=== PATIENT | female | born 1960 | race Hispanic/Latino ===

== ENCOUNTER 2018-08-11 00:34 | Inpatient (IN) | payer BC ==
--- NOTE | 2018-08-11 01:16 | ED PDOC ---
Arrival/HPI - General Chief Complaint: Lower Extremity Problem/Injury Time Seen by Provider: 08/11/18 00:37 Historian: Patient - History of Present Illness Narrative History of Present Illness (Text): 08/11/18 01:16 Aysha Sanchez is a 58 year old female, whose past medical history includes chrondrosarcoma, hypertension, and DVT s/p IVC filter, who presents to the emergency department complaining of left leg pain/swelling. Patient states she recently underwent surgery for right femur repair status post fracture approximately 5 weeks ago. Patient states her right leg has been healing well but notes she developed cramping pain to the left calf/posterior thigh yesterday. Patient was on Lovenox in the past for the surgery which she stopped 1.5 weeks ago. Patient was advised by her PMD to come in for further evaluation. Patient denies any weakness/numbness/tingling in the extremity, decreased range of motion, recent trauma/injury, shortness of breath, chest pain, or any other complaints. Symptom Onset: Gradual Symptom Course: Unchanged Activities at Onset: Light Context: Home Past Medical History - Provider Review Nursing Documentation Reviewed: Yes - Infectious Disease Hx of Infectious Diseases: None - Cardiac Hx Hypertension: Yes - Hematological/Oncological Hx Blood Transfusions: No Hx Blood Transfusion Reaction: No - Musculoskeletal/Rheumatological Hx Falls: No - Psychiatric Hx Depression: No Hx Emotional Abuse: No Hx Physical Abuse: No Hx Substance Use: No - Surgical History Other/Comment: R femur fx sx - Anesthesia Hx Anesthesia: Yes Hx Anesthesia Reactions: No Hx Malignant Hyperthermia: No - Suicidal Assessment Feels Threatened In Home Enviroment: No Family/Social History - Physician Review Nursing Documentation Reviewed: Yes Family/Social History: Unknown Family HX Smoking Status: Never Smoked Hx Alcohol Use: No Hx Substance Use: No Hx Substance Use Treatment: No Allergies/Home Meds Allergies/Adverse Reactions: Allergies No Known Allergies Allergy (Verified 03/02/12 19:22) Home Medications: Home Meds Medication Instructions Recorded Confirmed No Known Home Med 03/02/12 03/02/12 Review of Systems - Physician Review All systems were reviewed & negative as marked: Yes - Review of Systems Constitutional: Normal. absent: Fevers Eyes: Normal ENT: Normal Respiratory: Normal. absent: SOB, Cough Cardiovascular: Normal. absent: Chest Pain Gastrointestinal: Normal. absent: Abdominal Pain, Diarrhea, Nausea, Vomiting Genitourinary Female: Normal. absent: Dysuria, Frequency, Hematuria, Urine Output Changes Musculoskeletal: Other (+left cramp/posterior thigh cramping). absent: Back Pain, Neck Pain Skin: Normal. absent: Rash Neurological: Normal. absent: Headache, Dizziness Endocrine: Normal Hemo/Lymphatic: Normal Psychiatric: Normal Physical Exam Vital Signs Reviewed: Yes Vital Signs Temp Pulse Resp BP Pulse Ox 08/11/18 00:52 98.4 F 97 H 18 122/60 98 Temperature: Afebrile Blood Pressure: Normal Pulse: Regular Respiratory Rate: Normal Appearance: Positive for: Well-Appearing, Non-Toxic, Comfortable Pain Distress: None Mental Status: Positive for: Alert and Oriented X 3 - Systems Exam Head: Present: Atraumatic, Normocephalic Pupils: Present: PERRL Extroacular Muscles: Present: EOMI Conjunctiva: Present: Normal Mouth: Present: Moist Mucous Membranes Neck: Present: Normal Range of Motion Respiratory/Chest: Present: Clear to Auscultation, Good Air Exchange. No: Respiratory Distress, Accessory Muscle Use Cardiovascular: Present: Regular Rate and Rhythm, Normal S1, S2. No: Murmurs Abdomen: No: Tenderness, Distention, Peritoneal Signs Back: Present: Normal Inspection. No: CVA Tenderness, Midline Tenderness, Paraspinal Tenderness Upper Extremity: Present: Normal Inspection. No: Cyanosis, Edema Lower Extremity: Present: CALF TENDERNESS (Left calf tenderness). No: Edema Neurological: Present: GCS=15, CN II-XII Intact, Speech Normal Skin: Present: Warm, Dry, Normal Color. No: Rashes Psychiatric: Present: Alert, Oriented x 3, Normal Insight, Normal Concentration Medical Decision Making ED Course and Treatment: 08/11/18 01:16 Impression: 58 year old female presents with left calf/posterior thigh cramping. Differential Diagnosis included but are not limited to: DVT vs. muscular strain Plan: -- US Duplex Lower Extremities -- Reassess and disposition Progress Notes: 08/11/18 02:17 Preliminary US Duplex Lower Extremities positive for LLE DVT. EKG, CXR, labs o rdered. 08/11/18 02:49 Reviewed EKG, NSR at [address]-segment elevations or depressions, no T-wave inversions, normal intervals. 08/11/18 03:[address] Johnson, covering for Dr. Robins, who is aware and agrees with Lovenox. Pt [facility] be [facility] to [facility] for DVT Dr. Robins's service. Requests Dr. Mayes on heme/oncology consult. 08/11/18 03:09 CXR reviewed, shows no acute processes. - Lab Interpretations I have reviewed the lab results: Yes - RAD Interpretation Radiology Orders: 08/11/18 01:14 DUPLEX LOWER EXTRM VEIN LEFT [US] Stat Dioramist: ED Physician - EKG Interpretation Interpreted by ED Physician: Yes Type: 12 lead EKG - Scribe Statement The provider has reviewed the documentation as recorded by the Scribe Nati Nunez All medical record entries made by the Scribe were at my direction and personally dictated by me. I have reviewed the chart and agree that the record accurately reflects my personal performance of the history, physical exam, medical decision making, and the department course for this patient. I have also personally directed, reviewed, and agree with the discharge instructions and disposition. Disposition/Present on Arrival - Present on Arrival Any Indicators Present on Arrival: No History of DVT/PE: Yes History of Uncontrolled Diabetes: No Urinary Catheter: No History of Decub. Ulcer: No History Surgical Site Infection Following: None - Disposition Have Diagnosis and Disposition been Completed?: Yes Diagnosis: DVT of lower limb, acute Disposition: HOSPITALIZED Disposition Time: 03:12 Patient Plan: Admission Condition: STABLE Forms: [employer] (Belizean)
[2018-08-11 02:46] LABS: HEMOGLOBIN 10.2 g/dL (12.0-16.0); MEAN CELL VOLUME 90.1 fl (80.0-105.0); MEAN CORPUSCULAR HEMOGLOBIN 28.7 pg (25.0-35.0); MEAN CORPUSCULAR HGB CONC 31.9 g/dl (31.0-37.0); MEAN PLATELET VOLUME 9.6 fl (7.0-11.0); RBC 3.55 10^6/uL (3.5-6.1); RED CELL DISTRIBUTION WIDTH 13.7 % (11.5-14.5); WHITE BLOOD COUNT 16.1 10^3/uL (4.5-11.0)
[2018-08-11 02:50] LABS: ALBUMIN 3.9 g/dL (3.0-4.8); ALT/SGPT 46 U/L (7-56); AST/SGOT 53 U/L (14-36); BLOOD UREA NITROGEN 40 mg/dL (7-21); CALCIUM 9.7 mg/dL (8.4-10.5); GFR NON-AFRICAN AMERICAN 51; INR 1.35; PARTIAL THROMBOPLASTIN TIME 25.2 Seconds (25.1-36.5); PROTHROMBIN TIME 15.5 SECONDS (9.4-12.5)
[2018-08-11] MEDS ORDERED: Enoxaparin 100 mg Syringe SC STA (03:04)
[2018-08-11 04:52] VITALS: BMI 43.9
--- NOTE | 2018-08-11 08:45 | CARD ---
APPROVED REPORT Date of service: 08/11/2018 EKG Measurement Heart [id number] <Conclusion> Normal sinus rhythm Normal ECG
--- NOTE | 2018-08-11 09:02 | RAD ---
HISTORY: medical clearance COMPARISON: None available. TECHNIQUE: Chest, one view. FINDINGS: Examination limited by habitus and hypoinflation. LUNGS: No focal consolidation. Please note that chest x-ray has limited sensitivity for the detection of pulmonary masses. PLEURA: No significant pleural effusion identified. No definite pneumothorax . CARDIOVASCULAR: Heart size appears top normal. No significant atherosclerotic calcification present. OSSEOUS STRUCTURES: Degenerative changes of the spine. VISUALIZED UPPER ABDOMEN: Unremarkable. OTHER FINDINGS: None. IMPRESSION: No focal consolidation.
[2018-08-11] MEDS: Pantoprazole 40 mg EC Tab PO SCH (13:03)
[2018-08-11] MEDS: Enoxaparin 100 mg Syringe SC SCH ×2 (13:03→22:30)
--- NOTE | 2018-08-11 20:52 | HP ---
DATE OF EXAM: 08/11/2018 HISTORY OF PRESENT ILLNESS: The patient is 58 years old, a patient of Dr. 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 Almost five weeks ago, at work, she tripped and she fell, she broke her right hip. She was operated at [facility] five weeks ago. She was in the hospital for one week, but she was discharged. She was on anticoagulant while she was in the hospital, but she was discharged four weeks ago. She has been home and at home, she was not on anticoagulation. She was getting physical therapy and she was relatively ambulatory. The patient states for the last one week, she is having pain in the left calf going towards the medial side of the thigh. Pain got worse. So, she called the doctor who advised her to go to the emergency room for further evaluation. She denies any chest pain. No shortness of breath. No nausea or vomiting. No diarrhea. PAST MEDICAL HISTORY: Significant for; 1. Hypertension. 2. Hyperlipidemia. 3. 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 She does have a history of DVT in the past. 4. She has a history of inferior vena cava filter placement. ALLERGIES: SHE IS NOT ALLERGIC TO ANY MEDICATIONS. MEDICATIONS: At home, she is on lisinopril 20 mg daily. She is on Protonix 40 mg daily. SOCIAL HISTORY: She is , lives with her , has grown-up children. Denies smoking or drinking. PHYSICAL EXAMINATION GENERAL: She is awake, alert, oriented. Communicative. VITAL SIGNS: She is afebrile, pulse 80, respirations 20, blood pressure 120/58. LUNGS: Bilateral fair airflow. No rhonchi or crackle. HEART: S1, S2 audible. ABDOMEN: Soft, nontender. No rebound, no guarding. NEUROLOGIC: The patient is awake, alert, oriented. Communicative. Left leg calf tenderness and subtle difference in girth. LABORATORY DATA: WBC 16.1, hemoglobin 10.2, hematocrit 32.0, platelets . PT 15.5, INR 1.35. Chemistry; sodium 136, potassium 4.6, chloride 100, CO2 of 24, BUN 40, creatinine 1.1, blood sugar 129. Alkaline phosphatase 163. ASSESSMENT: 1. Left leg deep venous thrombosis. 2. History of right femur open reduction and internal fixation five weeks ago. 3. History of fibrosarcoma. 4. Hypertension. 5. Gastroesophageal reflux disease. PLAN: We will give her Lovenox 100 mg twice a day and start her on Xarelto, and after she is started on Xarelto, possible discharge in a.m. Rizwana Johnson MD (Delete this signature block when dictator is a preceptor.) cc: MD Cristy (Delete if not dictated.)
[2018-08-12] MEDS: Pantoprazole 40 mg EC Tab PO SCH (05:11)
[2018-08-12 07:09] LABS: ALBUMIN 3.3 g/dL (3.0-4.8); CALCIUM 9.3 mg/dL (8.4-10.5)
[2018-08-12 07:14] LABS: BASO # 0.01 K/mm3 (0.0-2.0); BASO % 0.1 % (0.0-3.0); EOS # 0.1 (0.0-0.7); EOS % 0.6 % (1.5-5.0); GRAN # 10.63 (1.4-6.5); GRAN % 78.6 % (50.0-68.0); HEMOGLOBIN 8.9 g/dL (12.0-16.0); LYMPH # 1.5 (1.2-3.4); LYMPH % 11.3 % (22.0-35.0); MEAN CELL VOLUME 90.2 fl (80.0-105.0); MEAN CORPUSCULAR HEMOGLOBIN 28.1 pg (25.0-35.0); MEAN CORPUSCULAR HGB CONC 31.1 g/dl (31.0-37.0); MEAN PLATELET VOLUME 9.7 fl (7.0-11.0); MONO # 1.3 (0.1-0.6); MONO % 9.4 % (1.0-6.0); RBC 3.17 10^6/uL (3.5-6.1); WHITE BLOOD COUNT 13.5 10^3/uL (4.5-11.0)
--- NOTE | 2018-08-12 13:35 | CP.PCM.DIS ---
Provider - Provider Date of Admission: 08/11/18 03:09 Attending physician: Tomas Robins MD [place] [facility] Course - Lab Results Lab Results: Most Recent Lab Values WBC 13.5 10^3/uL (4.5-11.0) H 08/12/18 05:30 RBC 3.17 10^6/uL (3.5-6.1) L 08/12/18 05:30 Hgb 8.9 g/dL (12.0-16.0) L 08/12/18 05:30 Hct 28.6 % (36.0-48.0) L 08/12/18 05:30 MCV 90.2 fl (80.0-105.0) 08/12/18 05:30 MCH 28.1 pg (25.0-35.0) 08/12/18 05:30 MCHC 31.1 g/dl (31.0-37.0) 08/12/18 05:30 RDW 14.0 % (11.5-14.5) 08/12/18 05:30 Plt Count 347 10^3/uL (120.0-450.0) 08/12/18 05:30 MPV 9.7 fl (7.0-11.0) 08/12/18 05:30 Gran % 78.6 % (50.0-68.0) H 08/12/18 05:30 Lymph % (Auto) 11.3 % (22.0-35.0) L 08/12/18 05:30 Levy % (Auto) 9.4 % (1.0-6.0) H 08/12/18 05:30 Eos % (Auto) 0.6 % (1.5-5.0) L 08/12/18 05:30 Baso % (Auto) 0.1 % (0.0-3.0) 08/12/18 05:30 Gran # 10.63 (1.4-6.5) H 08/12/18 05:30 Lymph # (Auto) 1.5 (1.2-3.4) 08/12/18 05:30 Levy # (Auto) 1.3 (0.1-0.6) H 08/12/18 05:30 Eos # (Auto) 0.1 (0.0-0.7) 08/12/18 05:30 Baso # (Auto) 0.01 K/mm3 (0.0-2.0) 08/12/18 05:30 PT 15.5 SECONDS (9.4-12.5) H 08/11/18 02:31 INR 1.35 08/11/18 02:31 APTT 25.2 Seconds (25.1-36.5) 08/11/18 02:31 Sodium 134 mmol/L (132-148) 08/12/18 05:30 Potassium 4.4 mmol/L (3.6-5.0) 08/12/18 05:30 Chloride 102 mmol/L (98-107) 08/12/18 05:30 Carbon Dioxide 26 mmol/L (21-33) 08/12/18 05:30 Anion Gap 11 (10-20) 08/12/18 05:30 BUN 35 mg/dL (7-21) H 08/12/18 05:30 Creatinine 1.2 mg/dl (0.7-1.2) 08/12/18 05:30 Est GFR ( Amer) 55 08/12/18 05:30 Est GFR (Non-Af Amer) 46 08/12/18 05:30 Random Glucose 98 mg/dL (70-110) 08/12/18 05:30 Calcium 9.3 mg/dL (8.4-10.5) 08/12/18 05:30 Total Bilirubin 0.7 mg/dL (0.2-1.3) 08/12/18 05:30 AST 46 U/L (14-36) H 08/12/18 05:30 ALT 41 U/L (7-56) 08/12/18 05:30 Alkaline Phosphatase 150 U/L (38-126) H 08/12/18 05:30 Total Protein 6.7 g/dL (5.8-8.3) 08/12/18 05:30 Albumin 3.3 g/dL (3.0-4.8) 08/12/18 05:30 Globulin 3.3 gm/dL 08/12/18 05:30 Albumin/Globulin Ratio 1.0 (1.1-1.8) L 08/12/18 05:30 Discharge Plan - Discharge Medications Prescriptions: Apixaban [Eliquis] 10 mg PO BID #14 tab Apixaban [Eliquis] 5 mg PO BID #60 tab - Follow Up Plan Condition: STABLE Disposition: HOME/ ROUTINE Instructions: Deep Vein Thrombosis (Blood Clots in the Legs) (DC) Additional Instructions: You were seen for a clot of in the veins of your left leg. You have been started on a new Blood-thinner medication, Eliquis. Please fill the prescription and take as prescribed. Take the 10mg twice-a-day blood thinner first. Start the 5mg twice-a-day blood thinner ONLY after finishing the 10mg dose. Do not take both at the same time. Please follow up with your PMD (Dr. Kearney) within 1 week of discharge. Please follow up with the Housekeeper Head (Dr. Mayes) within 3 weeks of discharge. Please resume all other home medications as previously prescribed. Please present to the nearest emergency department if you experience worsening or newly concerning symptoms. Referrals: Caio Kearney MD [Family Provider] - Shanelle Mayes MD [Staff Provider] -
--- NOTE | 2018-08-12 17:26 | CP.PCM.PN ---
<Elver Membreno - Last Filed: 08/12/18 17:20> Subjective - Date & Time of Evaluation Date of Evaluation: 08/12/18 Time of Evaluation: 07:30 - Subjective Subjective: Progress Note for Dr. Robins Service Patient seen and examined at bedside. No acute events overnight. This AM, patient's only complaint is some soreness in the left medial and posterior thigh, but both are improved compared to level of swelling/discomfort on ad mission, as per patient. Denies chest pain, shortness of breath, nausea, emesis. Objective - Vital Signs/Intake and Output Vital Signs (last 24 hours): Temp Pulse Resp BP Pulse Ox 98.1 F 73 18 107/59 L 98 08/12/18 16:34 08/12/18 16:34 08/12/18 16:34 08/12/18 16:34 08/12/18 16:34 Intake and Output: 08/12/18 08/12/18 06:59 18:59 Intake Total 1180 Output Total 450 Balance 730 - Medications Medications: Current Medications Apixaban (Eliquis) 10 mg PO BID [facility]; Protocol Last Admin: 08/12/18 17:10 Dose: 10 mg Ibuprofen (Motrin Tab) 600 mg PO Q6H PRN PRN Reason: Pain, moderate (4-7) Last Admin: 08/12/18 05:10 Dose: 600 mg Lisinopril (Zestril) 20 mg PO DAILY [facility] Last Admin: 08/12/18 10:10 Dose: Not Given Pantoprazole Sodium (Protonix Ec Tab) 40 mg PO 0600 [facility] Last Admin: 08/12/18 05:11 Dose: 40 mg - Labs Labs: 08/12/18 05:30 08/12/18 05:30 PT 15.5 SECONDS (9.4-12.5) H 08/11/18 02:31 INR 1.35 08/11/18 02:31 APTT 25.2 Seconds (25.1-36.5) 08/11/18 02:31 - Constitutional Appears: Non-toxic, No Acute Distress - Head Exam Head Exam: ATRAUMATIC, NORMAL INSPECTION, NORMOCEPHALIC - Eye Exam Eye Exam: Normal appearance. absent: Conjunctival injection, Scleral icterus - ENT Exam ENT Exam: Mucous Membranes Moist - Neck Exam Neck Exam: Full ROM, Normal Inspection. absent: Lymphadenopathy - Respiratory Exam Respiratory Exam: Clear to Ausculation Bilateral, NORMAL BREATHING PATTERN. absent: Accessory Muscle Use, Chest Wall Tenderness, Decreased Breath Sounds, Rales, Rhonchi, Wheezes - Cardiovascular Exam Cardiovascular Exam: REGULAR RHYTHM, RRR, +S1, +S2. absent: Bradycardia, Tachycardia, Irregular Rhythm, JVD, +S4 - GI/Abdominal Exam GI & Abdominal Exam: Soft, Normal Bowel Sounds. absent: Distended, Firm, Rigid, Tenderness, Diminished Bowel Sounds, Hyperactive Bowel Sounds, Hypoactive Bowel Sounds - Extremities Exam Extremities Exam: Tenderness (mild tenderness to palpation along medial upper thigh (immediately distal to groin region) and posterior lateral thigh). absent: Calf Tenderness, Pedal Edema - Back Exam Back Exam: absent: CVA tenderness (L), CVA tenderness (R) - Neurological Exam Neurological Exam: Alert, Awake Additional comments: following all commands appropriately, moving all extremities spontaneously - Psychiatric Exam Psychiatric exam: Normal Affect, Normal Mood - Skin Skin Exam: Dry, Intact, Normal Color, Warm Assessment and Plan - Assessment and Plan (Free Text) Assessment: This is a 58 yo F with PMH of HTN, Chondrosarcoma, DVT s/p IVC filter, and Right femur fracture s/p repair 5 weeks prior who presented with left thigh swelling and pain, and was found to have a DVT. Had been off post-op Lovenox for approximately 1.5 weeks prior to this admission. Plan: 1) Left thigh DVT -LE Duplex positive for extensive LLE DVT -Location of DVT unusual, recently s/p RLE surgery, and was on Lovenox until approx 1.5 weeks ago, ambulatory in rehab while off Lovenox -S/p Lovenox 100mg SC on admission, now on Eliquis 10mg BID x7 days, then will decrease to 5mg BID -Heme-onc following (Dr. Mayes), appreciate their recs -Motrin PRN for LLE pain -Ambulate as tolerated 2) S/p R femur fracture and repair -PT evaluated, recs Acute Rehab, patient amenable -Pending referral to [facility] 3) HTN -continue home Lisinopril Dispo: Med-surg, pending placement for acute rehab FEN: Regular diet Access: Peripheral IVs Consults: Heme-onc Ppx: Eliquis for DVT, Protonox for GI Patient reviewed and discussed with attending, Dr. Robins <Tomas Robins S - Last Filed: 08/12/18 21:10> Objective - Vital Signs/Intake and Output Vital Signs (last 24 hours): Temp Pulse Resp BP Pulse Ox 98.1 F 73 18 107/59 L 98 08/12/18 16:34 08/12/18 16:34 08/12/18 16:34 08/12/18 16:34 08/12/18 16:34 Intake and Output: 08/12/18 08/13/18 18:59 06:59 Intake Total 920 Output Total 0 Balance 920 - Medications Medications: Current Medications Apixaban (Eliquis) 10 mg PO BID [facility]; Protocol Last Admin: 08/12/18 17:10 Dose: 10 mg Ibuprofen (Motrin Tab) 600 mg PO Q6H PRN PRN Reason: Pain, moderate (4-7) Last Admin: 08/12/18 05:10 Dose: 600 mg Lisinopril (Zestril) 20 mg PO DAILY [facility] Last Admin: 08/12/18 10:10 Dose: Not Given Pantoprazole Sodium (Protonix Ec Tab) 40 mg PO 0600 [facility] Last Admin: 08/12/18 05:11 Dose: 40 mg - Labs Labs: 08/12/18 05:30 08/12/18 05:30 PT 15.5 SECONDS (9.4-12.5) H 08/11/18 02:31 INR 1.35 08/11/18 02:31 APTT 25.2 Seconds (25.1-36.5) 08/11/18 02:31 Assessment and Plan - Assessment and Plan (Free Text) Plan: Pt seen and examined. I have reviewed the note of the medical aides teacher and agree with it. I have discussed the assessment and plan with the resident. I have reviewed the patient's labs and medications. Pt with L leg DVT. She is awaiting evaluation for acite rehab. HTN is controlled. Spoke to Dr Mayes. Pt was on Lovenox and now has been placed on Eliquis.
--- NOTE | 2018-08-12 20:13 | US ---
PROCEDURE: Left lower extremity venous US HISTORY: Leg pain and swelling. Evaluate for DVT. PHYSICIAN(S): Rafael oD MD. TECHNIQUE: Duplex sonography and color-flow Doppler with graded compression were used to evaluate the deep venous system of the left lower extremity. FINDINGS: There is extensive acute occlusive left iliofemoral DVT. The visualized left external iliac vein is occluded. The thrombus extends in the left common femoral vein, femoral vein, popliteal vein and visualized tibial veins. IMPRESSION: 1. Extensive left iliofemoral DVT
[2018-08-13 07:37] LABS: BASO # 0.02 K/mm3 (0.0-2.0); BASO % 0.2 % (0.0-3.0); EOS # 0.1 (0.0-0.7); EOS % 0.7 % (1.5-5.0); GRAN # 8.79 (1.4-6.5); GRAN % 79.6 % (50.0-68.0); HEMOGLOBIN 8.9 g/dL (12.0-16.0); LYMPH # 1.2 (1.2-3.4); LYMPH % 11.1 % (22.0-35.0); MEAN CELL VOLUME 89.4 fl (80.0-105.0); MEAN CORPUSCULAR HEMOGLOBIN 27.6 pg (25.0-35.0); MEAN CORPUSCULAR HGB CONC 30.9 g/dl (31.0-37.0); MEAN PLATELET VOLUME 8.8 fl (7.0-11.0); MONO # 0.9 (0.1-0.6); MONO % 8.4 % (1.0-6.0); RBC 3.22 10^6/uL (3.5-6.1); RED CELL DISTRIBUTION WIDTH 13.9 % (11.5-14.5)
[2018-08-13 07:50] LABS: BLOOD UREA NITROGEN 32 mg/dL (7-21); CALCIUM 9.3 mg/dL (8.4-10.5); GFR NON-AFRICAN AMERICAN 51
[2018-08-13 08:27] VITALS: BP 102/54; PULSE 72; RESP 20; TEMP 98.3; O2SAT 97
--- NOTE | 2018-08-13 18:01 | CP.PCM.DIS ---
<Elver Membreno - Last Filed: 08/13/18 17:53> Provider - Provider Date of Admission: 08/11/18 03:09 Attending physician: Tomas Robins MD Primary care physician: Dr. Kearney Consults: Heme-onc: Sugey Time Spent in preparation of Discharge (in minutes): 35 Diagnosis - Discharge Diagnosis (1) HTN (hypertension) Status: Chronic Priority: Low (2) Presence of IVC filter Status: Chronic Priority: Medium (3) DVT of lower limb, acute Status: Acute Priority: High Hospital Course - Lab Results Lab Results: Most Recent Lab Values WBC 11.0 10^3/uL (4.5-11.0) 08/13/18 07:15 RBC 3.22 10^6/uL (3.5-6.1) L 08/13/18 07:15 Hgb 8.9 g/dL (12.0-16.0) L 08/13/18 07:15 Hct 28.8 % (36.0-48.0) L 08/13/18 07:15 MCV 89.4 fl (80.0-105.0) 08/13/18 07:15 MCH 27.6 pg (25.0-35.0) 08/13/18 07:15 MCHC 30.9 g/dl (31.0-37.0) L 08/13/18 07:15 RDW 13.9 % (11.5-14.5) 08/13/18 07:15 Plt Count 325 10^3/uL (120.0-450.0) 08/13/18 07:15 MPV 8.8 fl (7.0-11.0) 08/13/18 07:15 Gran % 79.6 % (50.0-68.0) H 08/13/18 07:15 Lymph % (Auto) 11.1 % (22.0-35.0) L 08/13/18 07:15 Fountain % (Auto) 8.4 % (1.0-6.0) H 08/13/18 07:15 Eos % (Auto) 0.7 % (1.5-5.0) L 08/13/18 07:15 Baso % (Auto) 0.2 % (0.0-3.0) 08/13/18 07:15 Gran # 8.79 (1.4-6.5) H 08/13/18 07:15 Lymph # (Auto) 1.2 (1.2-3.4) 08/13/18 07:15 Fountain # (Auto) 0.9 (0.1-0.6) H 08/13/18 07:15 Eos # (Auto) 0.1 (0.0-0.7) 08/13/18 07:15 Baso # (Auto) 0.02 K/mm3 (0.0-2.0) 08/13/18 07:15 PT 15.5 SECONDS (9.4-12.5) H 08/11/18 02:31 INR 1.35 08/11/18 02:31 APTT 25.2 Seconds (25.1-36.5) 08/11/18 02:31 Sodium 134 mmol/L (132-148) 08/13/18 07:15 Potassium 4.4 mmol/L (3.6-5.0) 08/13/18 07:15 Chloride 103 mmol/L (98-107) 08/13/18 07:15 Carbon Dioxide 24 mmol/L (21-33) 08/13/18 07:15 Anion Gap 12 (10-20) 08/13/18 07:15 BUN 32 mg/dL (7-21) H 08/13/18 07:15 Creatinine 1.1 mg/dl (0.7-1.2) 08/13/18 07:15 Est GFR ( Amer) > 60 08/13/18 07:15 Est GFR (Non-Af Amer) 51 08/13/18 07:15 Random Glucose 106 mg/dL (70-110) 08/13/18 07:15 Calcium 9.3 mg/dL (8.4-10.5) 08/13/18 07:15 Total Bilirubin 0.7 mg/dL (0.2-1.3) 08/12/18 05:30 AST 46 U/L (14-36) H 08/12/18 05:30 ALT 41 U/L (7-56) 08/12/18 05:30 Alkaline Phosphatase 150 U/L (38-126) H 08/12/18 05:30 Total Protein 6.7 g/dL (5.8-8.3) 08/12/18 05:30 Albumin 3.3 g/dL (3.0-4.8) 08/12/18 05:30 Globulin 3.3 gm/dL 08/12/18 05:30 Albumin/Globulin Ratio 1.0 (1.1-1.8) L 08/12/18 05:30 - Hospital Course Hospital Course: Discharge Summary for Dr. Robins service This is a 58 yo F with PMH of HTN, Chondrosarcoma, DVT s/p IVC filter, and Right femur fracture s/p repair 5 weeks prior who presented with left thigh swelling and pain, and was found to have a DVT. Had been off post-op Lovenox for approximately 1.5 weeks prior to this admission. While here, patient was also seen by Heme-onc. As per Heme-onc, patient was switched from Lovenox to [place] lio, and was instructed to follow up with Dr. Mayes as an outpatient. She was initially pending acute rehab placement due to PT recs, but as per OT, only qualifies for home with services. Patient will be discharged to home with services, will continue her previously outpatient weekly PT, and will continue her Eliquis as prescribed. She was given a script for Eliquis and instructed to fill and take as prescribed. She was also instructed to follow up with her PMD within 1 week of discharge. Patient expressed agreement and understanding. She was then discharged to home. Reviewed and discussed with attending, Dr. Robins. Discharge Exam - Additional Findings Additional findings: - Constitutional Appears: Non-toxic, No Acute Distress - Head Exam Head Exam: ATRAUMATIC, NORMAL INSPECTION, NORMOCEPHALIC - Eye Exam Eye Exam: Normal appearance. absent: Conjunctival injection, Scleral icterus - ENT Exam ENT Exam: Mucous Membranes Moist - Neck Exam Neck Exam: Full ROM, Normal Inspection. absent: Lymphadenopathy - Respiratory Exam Respiratory Exam: Clear to Ausculation Bilateral, NORMAL BREATHING PATTERN. absent: Accessory Muscle Use, Chest Wall Tenderness, Decreased Breath Sounds, Rales, Rhonchi, Wheezes - Cardiovascular Exam Cardiovascular Exam: REGULAR RHYTHM, RRR, +S1, +S2. absent: Bradycardia, Tachycardia, Irregular Rhythm, JVD, +S4 - GI/Abdominal Exam GI & Abdominal Exam: Soft, Normal Bowel Sounds. absent: Distended, Firm, Rigid, Tenderness, Diminished Bowel Sounds, Hyperactive Bowel Sounds, Hypoactive Bowel Sounds - Extremities Exam Extremities Exam: Tenderness (mild tenderness to palpation along medial upper thigh (immediately distal to groin region) and posterior lateral thigh). absent: Calf Tenderness, Pedal Edema - Back Exam Back Exam: absent: CVA tenderness (L), CVA tenderness (R) - Neurological Exam Neurological Exam: Alert, Awake, following all commands appropriately, moving all extremities spontaneously - Psychiatric Exam Psychiatric exam: Normal Affect, Normal Mood - Skin Skin Exam: Dry, Intact, Normal Color, Warm Discharge Plan - Discharge Medications Prescriptions: Apixaban [Eliquis] 10 mg PO BID #14 tab Apixaban [Eliquis] 5 mg PO BID #60 tab - Follow Up Plan Condition: STABLE Disposition: HOME/ ROUTINE Instructions: Deep Vein Thrombosis (Blood Clots in the Legs) (DC) Additional Instructions: You were seen for a clot of in the veins of your left leg. You have been started on a new Blood-thinner medication, Eliquis. Please fill the prescription and take as prescribed. Take the 10mg twice-a-day blood thinner first. Start the 5mg twice-a-day blood thinner ONLY after finishing the 10mg dose. Do not take both at the same time. Please follow up with your PMD (Dr. Kearney) within 1 week of discharge. Please follow up with [facility] (Dr. Mayes) within 3 weeks of discharge. Please resume all other home medications as previously prescribed. Please present to the nearest emergency department if you experience worsening or newly concerning symptoms. Referrals: Caio Kearney MD [Family Provider] - Shanelle Mayes MD [Staff Provider] - <Tomas Robins - Last Filed: 08/13/18 19:40> Provider - Provider Date of Admission: 08/11/18 03:09 Attending physician: Tomas Robins MD Hospital Course - Lab Results Lab Results: Most Recent Lab Values WBC 11.0 10^3/uL (4.5-11.0) 08/13/18 07:15 RBC 3.22 10^6/uL (3.5-6.1) L 08/13/18 07:15 Hgb 8.9 g/dL (12.0-16.0) L 08/13/18 07:15 Hct 28.8 % (36.0-48.0) L 08/13/18 07:15 MCV 89.4 fl (80.0-105.0) 08/13/18 07:15 MCH 27.6 pg (25.0-35.0) 08/13/18 07:15 MCHC 30.9 g/dl (31.0-37.0) L 08/13/18 07:15 RDW 13.9 % (11.5-14.5) 08/13/18 07:15 Plt Count 325 10^3/uL (120.0-450.0) 08/13/18 07:15 MPV 8.8 fl (7.0-11.0) 08/13/18 07:15 Gran % 79.6 % (50.0-68.0) H 08/13/18 07:15 Lymph % (Auto) 11.1 % (22.0-35.0) L 08/13/18 07:15 Fountain % (Auto) 8.4 % (1.0-6.0) H 08/13/18 07:15 Eos % (Auto) 0.7 % (1.5-5.0) L 08/13/18 07:15 Baso % (Auto) 0.2 % (0.0-3.0) 08/13/18 07:15 Gran # 8.79 (1.4-6.5) H 08/13/18 07:15 Lymph # (Auto) 1.2 (1.2-3.4) 08/13/18 07:15 Fountain # (Auto) 0.9 (0.1-0.6) H 08/13/18 07:15 Eos # (Auto) 0.1 (0.0-0.7) 08/13/18 07:15 Baso # (Auto) 0.02 K/mm3 (0.0-2.0) 08/13/18 07:15 PT 15.5 SECONDS (9.4-12.5) H 08/11/18 02:31 INR 1.35 08/11/18 02:31 APTT 25.2 Seconds (25.1-36.5) 08/11/18 02:31 Sodium 134 mmol/L (132-148) 08/13/18 07:15 Potassium 4.4 mmol/L (3.6-5.0) 08/13/18 07:15 Chloride 103 mmol/L (98-107) 08/13/18 07:15 Carbon Dioxide 24 mmol/L (21-33) 08/13/18 07:15 Anion Gap 12 (10-20) 08/13/18 07:15 BUN 32 mg/dL (7-21) H 08/13/18 07:15 Creatinine 1.1 mg/dl (0.7-1.2) 08/13/18 07:15 Est GFR ( Amer) > 60 08/13/18 07:15 Est GFR (Non-Af Amer) 51 08/13/18 07:15 Random Glucose 106 mg/dL (70-110) 08/13/18 07:15 Calcium 9.3 mg/dL (8.4-10.5) 08/13/18 07:15 Total Bilirubin 0.7 mg/dL (0.2-1.3) 08/12/18 05:30 AST 46 U/L (14-36) H 08/12/18 05:30 ALT 41 U/L (7-56) 08/12/18 05:30 Alkaline Phosphatase 150 U/L (38-126) H 08/12/18 05:30 Total Protein 6.7 g/dL (5.8-8.3) 08/12/18 05:30 Albumin 3.3 g/dL (3.0-4.8) 08/12/18 05:30 Globulin 3.3 gm/dL 08/12/18 05:30 Albumin/Globulin Ratio 1.0 (1.1-1.8) L 08/12/18 05:30 - Hospital Course Hospital Course: Pt seen and examined. I have reviewed the note of the medical front desk coordinator and agree with it. I have discussed the assessment and plan with the resident. I have reviewed the patient's labs and medications. The pt states her L leg was improving and pain is better. She is on Eliquis for her DVT. SHe was given a Rx and will be discharged home. She will be f/u with PMD.
== END 2018-08-13 19:02 | disposition home health service (06) | DRG 301 ==
LOC: ED 00:34 → ERH 03:09 → 3RSO 04:12
PROVIDERS: ADMIT Internal Medicine Nephrology; ATTEND Internal Medicine Nephrology
DX: I82.422 Acute embolism and thrombosis of left iliac vein (principal); I10 Essential (primary) hypertension; E78.5 Hyperlipidemia, unspecified; K21.9 Gastro-esophageal reflux disease without esophagitis; Z85.830 Personal history of malignant neoplasm of bone

== ENCOUNTER 2018-09-05 22:24 | Emergency (ER) | payer BC ==
[2018-09-05 22:24] VITALS: BMI 43.9
[2018-09-05 22:43] VITALS: RESP 18; TEMP 97.4
--- NOTE | 2018-09-05 23:47 | ED PDOC ---
Arrival/HPI - General Chief Complaint: Back Pain Time Seen by Provider: 09/05/18 22:49 Historian: Patient - History of Present Illness Narrative History of Present Illness (Text): 09/05/18 23:35 58 year old female, whose past medical history includes chrondrosarcoma, hypertension, and DVT s/p IVC filter, who presents to the emergency department with right upper back pain, since 3 days. Patient states she was having a bad reaction to Eloquis and her PMD changed it to Xarelto 2 days ago. Patient started taking Xarelto today. Patient thought the back pain was part of the reaction, but when it did not subside, she decided to get evaluation. Patient states pain is mostly when leaning or laying on it. Patient denies any falls or trauma, fevers, chills, headache, dizziness, chest pain, shortness of breath, cough, abdominal pain, nausea, vomiting, diarrhea, or any other complaint. Patient is ambulating w/crutches d/t recent right femur fracture. PMD: Dr. Mayes Time/Duration: < week (3 days) Context: Home Past Medical History - Provider Review Nursing Documentation Reviewed: Yes - Infectious Disease Hx of Infectious Diseases: None - Reproductive Menopause: Yes - Cardiac Hx Hypertension: Yes - Pulmonary Hx Respiratory Disorders: No - Neurological Hx Neurological Disorder: No - HEENT Hx HEENT Disorder: No - Renal Hx Renal Disorder: No - Endocrine/Metabolic Hx Endocrine Disorders: No - Hematological/Oncological Hx Blood Disorders: No - Integumentary Hx Dermatological Disorder: No - Musculoskeletal/Rheumatological Hx Falls: Yes (Tripped 5 weeks ago broke femur at work) Hx Fractures: Yes Other/Comment: Hx Chrondrosarcoma - Gastrointestinal Hx Gastrointestinal Disorders: No - Genitourinary/Gynecological Hx Genitourinary Disorders: No - Psychiatric Hx Psychophysiologic Disorder: No Hx Substance Use: No - Surgical History Hx Joint Replacement: Yes (right hip replacement X3 most recent 01/2017) Other/Comment: R femur fx sx - Anesthesia Hx Anesthesia: Yes Hx Anesthesia Reactions: No Hx Malignant Hyperthermia: No - Suicidal Assessment Feels Threatened In Home Enviroment: No Family/Social History - Physician Review Nursing Documentation Reviewed: Yes Family/Social History: No Known Family HX Smoking Status: Never Smoked Hx Alcohol Use: No Hx Substance Use: No Hx Substance Use Treatment: No Allergies/Home Meds Allergies/Adverse Reactions: Allergies No Known Allergies Allergy (Verified 09/05/18 22:54) Home Medications: Home Meds Medication Instructions Recorded Confirmed Rivaroxaban [Xarelto] 1 tab PO DAILY 09/05/18 09/05/18 Review of Systems - Physician Review All systems were reviewed & negative as marked: Yes - Review of Systems Constitutional: absent: Fevers, Night Sweats Respiratory: absent: SOB, Cough Cardiovascular: absent: Chest Pain Gastrointestinal: absent: Abdominal Pain, Diarrhea, Nausea, Vomiting Musculoskeletal: Back Pain Neurological: absent: Headache, Dizziness Physical Exam Vital Signs Reviewed: Yes Vital Signs Temp Pulse Resp BP Pulse Ox 09/05/18 22:42 97.4 F L 85 18 160/94 H 99 Temperature: Hypothermic Blood Pressure: Hypertensive Pulse: Regular Respiratory Rate: Normal Appearance: Positive for: Well-Appearing, Non-Toxic, Comfortable Pain Distress: None Mental Status: Positive for: Alert and Oriented X 3 - Systems Exam Head: Present: Atraumatic, Normocephalic Pupils: Present: PERRL Extroacular Muscles: Present: EOMI Conjunctiva: Present: Normal Mouth: Present: Moist Mucous Membranes Neck: Present: Normal Range of Motion Respiratory/Chest: Present: Clear to Auscultation, Good Air Exchange. No: Respiratory Distress, Accessory Muscle Use Cardiovascular: Present: Regular Rate and Rhythm, Normal S1, S2. No: Murmurs Abdomen: No: Tenderness, Distention, Peritoneal Signs Back: Present: Normal Inspection. No: CVA Tenderness, Midline Tenderness, Paraspinal Tenderness Upper Extremity: Present: Normal Inspection. No: Cyanosis, Edema Lower Extremity: Present: Normal Inspection. No: Edema Neurological: Present: Speech Normal Skin: Present: Warm, Dry, Normal Color. No: Rashes Psychiatric: Present: Alert, Oriented x 3, Normal Insight, Normal Concentration Medical Decision Making ED Course and Treatment: 09/05/18 23:49 Impression: 58 year old female presents with right upper back pain. Plan: -- Chest X-ray -- Reassess and disposition Prior Visits: Notes and results from previous visits were reviewed. Progress Notes: 09/05/18 23:[address] Mayes, who remembers seeing patient on Sunday and prescribing Xarelto. Dr. Mayes agrees with X-ray plan, and states as long as nothing shows, she will see patient in her office. 12/14/18 00:19 Spoke with patient and explained that preliminary read of X-ray by me is negative. Patient states she just wants some Tylenol and will follow up with Dr. Mayes. Patient states felling better and would like to go home. Patient is very well appearing and non-toxic. Vital signs are stable. I discussed the results of the work-up, diagnosis and treatment. Written discharge instructions were provided to patient. Additional verbal instructions were given and discussed with patient. We discussed the importance of follow up with PCP/consultants. I also reiterated reasons to immediately return to the ER including: worsening in current symptoms and/or new, continued, or concerning symptoms. Pt understood and agreed. - RAD Interpretation Radiology Orders: 09/05/18 23:03 CHEST PORTABLE [RAD] Stat - Scribe Statement The provider has reviewed the documentation as recorded by the Scribe [place] Provider Scribe Attestation: All medical record entries made by the Scribe were at my direction and personally dictated by me. I have reviewed the chart and agree that the record accurately reflects my personal performance of the history, physical exam, medical decision making, and the department course for this patient. I have also personally directed, reviewed, and agree with the discharge instructions and disposition. Disposition/Present on Arrival - Present on Arrival Any Indicators Present on Arrival: Yes History of DVT/PE: Yes History of Uncontrolled Diabetes: No Urinary Catheter: No History of Decub. Ulcer: No History Surgical Site Infection Following: None - Disposition Have Diagnosis and Disposition been Completed?: Yes Diagnosis: Upper back pain on right side Disposition: HOME/ ROUTINE Disposition Time: 00:22 Patient Plan: Discharge Condition: STABLE Discharge Instructions (ExitCare): Upper Back Pain (DC) Referrals: Shanelle Mayes MD [Staff Provider] - Follow up with primary Forms: [employer] ([place]i)
[2018-09-06 01:49] VITALS: BP 155/80; PULSE 80; O2SAT 100
--- NOTE | 2018-09-06 10:06 | RAD ---
Date of service: 09/05/2018 HISTORY: upper back pain COMPARISON: 08/11/2018 FINDINGS: LUNGS: No active pulmonary disease. PLEURA: No significant pleural effusion identified, no pneumothorax apparent. CARDIOVASCULAR: Atherosclerotic calcifications identified primarily aortic arch. No radiographic findings to suggest acute or significant cardiovascular disease. OSSEOUS STRUCTURES: No significant abnormalities. VISUALIZED UPPER ABDOMEN: Normal. OTHER FINDINGS: None. IMPRESSION: No active disease. No significant interval change compared to the prior examination(s).
== END 2018-09-06 00:35 | disposition home or self-care (01) ==
LOC: ED 22:24
DX: M54.6 Pain in thoracic spine (principal); I10 Essential (primary) hypertension